=== PATIENT | female | born 2005 | race African-American/Black ===

== ENCOUNTER 2024-08-13 20:14 | Emergency (ER) | payer SELFPAY ==
--- NOTE | ~2024-08-13 | US_ITS ---
EXAMINATION: US OB <=14 wk fetus w TV DATE: 08/13/2024 21:55 CDT INDICATION: Amenorrhea now with bleeding and cramping and positive test COMPARISON: 02/25/2024 TECHNIQUE: Real-time transabdominal and transvaginal obstetric ultrasound. FINDINGS: 1 para 0 Left menstrual period is unknown. Quantitative beta hCG is not resulted. The uterus measures 8.3 x 4.8 x 4.9 cm. A gestational sac is identified within the uterus, to the right of midline. The mean gestational sac size is 19.7 mm, corresponding to an approximate gestational age of 6 weeks and 6 days. A pole is identified, with a crown-rump length that measures 1.7 cm, corresponding to an approx imate gestational age of 8 weeks and 0 days. cardiac activity is identified at a rate of 169 bpm. The right ovary measures 4.0 x 1.9 x 2.7 cm. Right-sided corpus luteal cyst. The left ovary measures 2.7 x 1.9 x 1.9 cm. Estimated date of delivery by ultrasound is 03/25/2025 IMPRESSION: Single intrauterine gestation with an approximate gestational age of 8 weeks and 0 days, with c ardiac activity identified. Reviewed, dictated and finalized at location A. IMPRESSION: Single intrauterine gestation with an approximate gestational age of 8 weeks an d 0 days, with cardiac activity identified.
[2024-08-13 20:18] VITALS: BP 133/68; PULSE 99; RESP 16; TEMP 36.6; O2SAT 100
--- NOTE | 2024-08-13 21:54 | ED_ITS ---
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 She reports her primary care provider took her off her control pills approximately 6 months ago. Patient reports her last menstrual period was approximately 3 months ago. She reports she did not know she was until she went to [facility] earlier today and they confirmed with a positive test. Patient endorses lower abdominal pain earlier today that now has subsided in her back. She denies any recent fevers, chest pain, shortness of breath, abdominal trauma. Related Data Allergies Allergy/AdvReac Type Severity Reaction Status Date / Time No Known Allergies Allergy Verified 08/13/24 20:17 Review of Systems 2 Review of Systems: All systems reviewed & are unremarkable except as noted in HPI and below Exam 2 Narrative: GENERAL: Well appearing, well-nourished, non-toxic, in no acute distress. HEAD: Normocephalic, atraumatic. NECK: Supple. No adenopathy, no masses. RESPIRATORY: Airway patent, respirations nonlabored. Clear to auscultation bilaterally, no rales, rhonchi, wheezing. CARDIOVASCULAR: Regular rate and rhythm without murmurs, rubs, or gallops. Peripheral pulses 2+ and equal bilaterally. ABDOMINAL: Soft, nontender, nondistended, no hepatosplenomegaly. Normoactive BS. MUSCULOSKELETAL: Moves all extremities. Strength/ROM intact without gross deformities. SKIN: Warm, dry, normal color. No rashes. NEURO: A&O X3. Speech clear. Cranial nerves II-XII intact. No ataxic movements. PSYCHIATRIC: Appropriate mood and affect. Normal interaction. Course Vital Signs Vital signs: Vital Signs Temperature 36.6 C 08/13/24 20:18 Pulse Rate 99 08/13/24 20:18 Respiratory Rate 16 08/13/24 20:18 Blood Pressure 133/68 08/13/24 20:18 Pulse Oximetry 100 08/13/24 20:18 Oxygen Delivery Room Air 08/13/24 20:18 Temperature 36.6 C 08/13/24 20:18 Pulse Rate 99 08/13/24 20:18 Respiratory Rate 16 08/13/24 20:18 Blood Pressure 133/68 08/13/24 20:18 Pulse Oximetry 100 08/13/24 20:18 Oxygen Delivery Room Air 08/13/24 20:18 MDM - OB/Uterine Contractions MDM Narrative Medical decision making narrative: Patient is a 19-year-old female who presents to the ER with complaints of back pain and vaginal bleeding. She reports her primary care provider took her off her control pills approximately 6 months ago. Patient reports her last menstrual period was approximately 3 months ago. She reports she did not know she was until she went to [facility] earlier today and they confirmed with a positive test. Patient endorses lower abdominal pain earlier today that now has subsided in her back. She denies any recent fevers, chest pain, shortness of breath, abdominal trauma. Labs Ordered: CBC, CMP, beta HCG, UA Imaging Ordered: Ultrasound Ob less than 14 weeks Medications Ordered: Tylenol p.o. Results: Patient's CMP indicates patient is mildly dehydrated. Her urinalysis indicates patient has UTI. Pt's US indicates The uterus measures 8.3 x 4.8 x 4.9 cm. A gestational sac is identified within the uterus, to the right of midline. The mean gestational sac size is 19.7 mm, corresponding to an approximate gestational age of 6 weeks and 6 days. A pole is identified, with a crown- rump length that measures 1.7 cm, corresponding to an approximate gestational age of 8 weeks and 0 days. cardiac activity is identified at a rate of 169 bpm. The right ovary measures 4.0 x 1.9 x 2.7 cm. Right-sided corpus luteal cyst. The left ovary measures 2.7 x 1.9 x 1.9 cm. Estimated date of delivery by ultrasound is 03/25/2025 Diagnosis: Abnormal vaginal bleeding, urinary tract infection, intrauterine , risk for spontaneous Consults: OBGYN (outpatient) Patient Education/Shared MDM: Results of imaging and lab work shared with patient. She endorses improvement following pain medication administration. Patient strongly advised to maintain hydration status upon discharge and follow- up with her PCP as soon as possible. She will be discharged home with a prescription for Macrobid and vitamins. Strict return precautions provided. Patient verbalized understanding is in agreement with plan. Vital signs stable at time of discharge. All questions answered. Differential Diagnosis Differential diagnosis: Likely other (Increase for spontaneous , intrauterine , urinary tract infection, abnormal vaginal bleeding) Lab Data Attestation: I reviewed the patient's lab results. 08/13/24 21:52 08/13/24 21:52 Labs: Lab Results 08/13/24 08/14/24 Range/Units 21:52 00:59 WBC 10.1 H (4.5-10.0) K/mm3 RBC 4.32 (4.2-5.4) M/mm3 Hgb 11.9 L (12.0-15.0) g/dL Hct 37.0 (37.0-47.0) % MCV 85.6 (80-100) fl MCH 27.5 (26-34) pg MCHC 32.2 (32-36) g/dl RDW 14.5 (11.5-14.5) % Plt Count 343 (150-375) k/mm3 MPV 9.5 (7.4-10.4) fl Immature Gran % (Auto) 0.3 (0-0.5) % Neut % (Auto) 65.4 (45.5-73.1) % Lymph % (Auto) 27.9 (18.3-44.2) % [place] % (Auto) 5.5 (2.6-8.5) % Eos % (Auto) 0.6 (0-4.4) % Baso % (Auto) 0.3 (0.2-1.2) % Lymph # (Auto) 2.81 (0.9-3.2) K/mm3 [place] # (Auto) 0.6 (0.1-0.6) K/mm3 Eos # (Auto) 0.1 (0-0.3) K/mm3 Baso # (Auto) 0.0 (0.0-0.1) K/mm3 Abs Immat Gran (auto) 0.03 (0.00-0.031) K/mm3 Absolute Neuts (auto) 6.6 (1.3-6.7) K/mm3 Absolute Nucleated RBC 0.000 (0.0-0.012) K/mm3 Nucleated RBC % 0.0 (0.0-0.2) % Sodium 137 (137-145) mmol/L Potassium 3.9 (3.4-5.0) mmol/L Chloride 103 (98-107) mmol/L Carbon Dioxide 21 L (22-30) mmol/L Anion Gap 13 H (4-12) mmol/L BUN 7 (7-17) mg/dL Creatinine 0.51 L (0.7-1.0) mg/dL Estim Creat Clear Calc 158 ml/min Estimated GFR > 60 (59 - ) Glucose 83 (65-110) mg/dL Calcium 9.5 (8.4-10.2) mg/dL Total Bilirubin 0.7 (0.2-1.3) mg/dL AST 20 (14-36) U/L ALT 15 (6-35) U/L Alkaline Phosphatase 91 (38-126) U/L Total Protein 8.0 (6.3-8.2) g/dL Albumin 4.3 (3.5-5.1) g/dL Beta HCG, Quant 66834.00 mIU/ML Urine Color Red H (Yellow) Urine Appearance Clear (Clear) Urine pH TNP Ur Specific [place] TNP Urine Protein TNP Urine Glucose (UA) TNP Urine Ketones TNP Ur Blood (Man) TNP Urine Nitrate TNP Urine Bilirubin TNP Urine Urobilinogen TNP Add Ur Microanalysis Reviewed Leukocyte Esterase Rfl TNP Urine RBC >100 H (0-2) /hpf Urine WBC 11-20 H (0-3) /hpf Ur Squamous Epith Cells Moderate (Few) /hpf Urine Bacteria Rare /hpf Urine Casts 0-2 Imaging Data Attestation: I personally reviewed and interpreted this imaging study as follows: Radiologist's impression: Impressions Obstetrics Ultrasound 08/13/24 21:55 IMPRESSION: Single intrauterine gestation with an approximate gestational age of 8 weeks and 0 days, with cardiac activity identified. Discharge Plan Discharge Clinical Impression: At increased risk for spontaneous , Urinary tract infection affecting , Vaginal bleeding, abnormal Patient Disposition: Home, Self-Care Condition: Stable Instructions: Antibiotic Form, Abnormal (Dysfunctional) Uterine Bleeding (ED), Urinary Tract Infection in (ED) Additional Instructions: Please return to the ER with any worsening symptoms. Follow-up with an OBGYN as soon as possible. Take all medications as prescribed, including regularly scheduled medications. Complete your full dose of antibiotics. Start taking vitamins. Patient Language: Danish Prescriptions: New 114-iron a-g-folate 1 20 mg iron- 1 mg tablet 1 tablet PO DAILY Qty: 90 0RF nitrofurantoin monohyd/m-cryst [Macrobid] 100 mg capsule 100 mg PO Q12H 5 Days Qty: 10 0RF Rx Instructions: must administer with a meal/food Follow-up/Referrals: Linda Andrews MD [Physician] - (OBGYN) PHYSICIAN NOT ON STAFF,NONSTAFF [Primary Care Provider] - Javier Pulliam MD [Physician] - (OBGYN) Stand Alone Forms: Work/School Release IP Time of Disposition: 02:03
[2024-08-13 21:59] LABS: Basophils Percent Auto 0.3 % (0.2-1.2); Eosinophils Absolute Auto 0.1 K/mm3 (0-0.3); Eosinophils Percent Auto 0.6 % (0-4.4); Hemoglobin 11.9 g/dL (12.0-15.0); Immature Granulocyte Absolute 0.03 K/mm3 (0.00-0.031); Immature Granulocyte Percent A 0.3 % (0-0.5); Lymphocytes Absolute Auto 2.81 K/mm3 (0.9-3.2); Lymphocytes Percent Auto 27.9 % (18.3-44.2); Mean Corpuscular HGB Conc 32.2 g/dl (32-36); Mean Corpuscular Hemoglobin 27.5 pg (26-34); Mean Corpuscular Volume 85.6 fl (80-100); Mean Platelet Volume 9.5 fl (7.4-10.4); Monocytes Absolute Auto 0.6 K/mm3 (0.1-0.6); Monocytes Percent Auto 5.5 % (2.6-8.5); Neutrophils Absolute Auto 6.6 K/mm3 (1.3-6.7); Neutrophils Percent Auto 65.4 % (45.5-73.1); Platelet Count Result 343 k/mm3 (150-375); Red Blood Count 4.32 M/mm3 (4.2-5.4); Red Cell Distribution Width 14.5 % (11.5-14.5); White Blood Count 10.1 K/mm3 (4.5-10.0)
[2024-08-13 22:10] LABS: Alanine Aminotransferase 15 U/L (6-35); Albumin Level 4.3 g/dL (3.5-5.1); Alkaline Phosphatase 91 U/L (38-126); Anion Gap 13 mmol/L (4-12); Aspartate Amino Transferase 20 U/L (14-36); Bilirubin,Total 0.7 mg/dL (0.2-1.3); Blood Urea Nitrogen 7 mg/dL (7-17); Calcium 9.5 mg/dL (8.4-10.2); Carbon Dioxide 21 mmol/L (22-30); Chloride 103 mmol/L (98-107); Estimated CRCL calculation 158 ml/min; Estimated Glomerular Filt Rate > 60; Glucose 83 mg/dL (65-110); Potassium 3.9 mmol/L (3.4-5.0); Sodium 137 mmol/L (137-145)
--- NOTE | 2024-08-13 22:20 | PC.NURSE ---
gave patient urine cup and moist towelette and advised her that we needed a urine sample. patient advised US had her pee for their exam and she is unsure when she will be able to urinate again.
[2024-08-13] MEDS: ACETAMINOPHEN 500 MG TABLET 1000 MG PO (22:35)
[2024-08-13] MEDS: SODIUM CHLORIDE 0.9% IV 1,000 ML 999 ML IV CONT (22:36)
--- NOTE | 2024-08-14 00:39 | PC.NURSE ---
pt ambulatory to restroom and verbalized unable to urinate at this time.
[2024-08-14 01:30] LABS: Bacteria Urine Rare /hpf; Need Manual Microscopic Reviewed; Non Pathogenic Casts 0-2; RBC Urine >100 /hpf (0-2); Squamous Epithelial Cell Urine Moderate /hpf (Few)
[2024-08-14 01:33] LABS: Appearance Urine Clear (Clear)
[2024-08-14 01:34] LABS: Add Urine Microscopic? YES; Color Urine Red (Yellow)
== END 2024-08-14 02:11 | disposition home or self-care (01) ==
PROVIDERS: Emergency Provider Registered Nurse
DX: O20.9 Hemorrhage in early pregnancy, unspecified (principal); O23.41 Unspecified infection of urinary tract in pregnancy, first trimester; N39.0 Urinary tract infection, site not specified; Z3A.08 8 weeks gestation of pregnancy
CPT/HCPCS: 36415; 76801; 76817; 80053; 81001; 84702; 85025; 99284; A9270; J7030

== ENCOUNTER 2024-08-17 21:57 | Emergency (ER) | payer SELFPAY ==
[2024-08-17 22:06] VITALS: BP 139/86; PULSE 107; RESP 16; TEMP 36.4; O2SAT 100
[2024-08-17 23:27] LABS: BEDSIDEPREGUCG Positive (Negative)
[2024-08-17 23:37] LABS: Bacteria Urine None Seen /hpf; Non Pathogenic Casts 0-2; RBC Urine >100 /hpf (0-2); Squamous Epithelial Cell Urine Occasional /hpf (Few)
[2024-08-17 23:56] LABS: Add Urine Microscopic? YES; Appearance Urine Turbid (Clear); Bilirubin Urine 1+ (Negative); Blood Urine 3+ (Negative); Color Urine Dark Amber (Yellow); Glucose Urine UA Negative (Negative); Ketones Urine 3+ mg/dL (Negative); Leukocyte Esterase Ur Trace LEU/UL (Negative); Nitrate Urine Negative (Negative); Protein Urine 1+ mg/dL (Negative); Specific Grav Ur 1.036 (1.001-1.035); pH Urine 5.5 (5.0-9.0)
[2024-08-18 01:04] LABS: Basophils Percent Auto 0.4 % (0.2-1.2); Eosinophils Percent Auto 0.3 % (0-4.4); Hematocrit 34.4 % (37.0-47.0); Immature Granulocyte Absolute 0.04 K/mm3 (0.00-0.031); Immature Granulocyte Percent A 0.4 % (0-0.5); Lymphocytes Absolute Auto 1.62 K/mm3 (0.9-3.2); Lymphocytes Percent Auto 14.6 % (18.3-44.2); Mean Corpuscular Hemoglobin 27.6 pg (26-34); Mean Corpuscular Volume 86.2 fl (80-100); Mean Platelet Volume 9.5 fl (7.4-10.4); Monocytes Absolute Auto 0.5 K/mm3 (0.1-0.6); Monocytes Percent Auto 4.4 % (2.6-8.5); Neutrophils Absolute Auto 8.9 K/mm3 (1.3-6.7); Neutrophils Percent Auto 79.9 % (45.5-73.1); Platelet Count Result 337 k/mm3 (150-375); Red Blood Count 3.99 M/mm3 (4.2-5.4); Red Cell Distribution Width 14.5 % (11.5-14.5); White Blood Count 11.1 K/mm3 (4.5-10.0)
[2024-08-18 01:14] LABS: Alanine Aminotransferase 21 U/L (6-35); Albumin Level 4.5 g/dL (3.5-5.1); Alkaline Phosphatase 91 U/L (38-126); Anion Gap 12 mmol/L (4-12); Aspartate Amino Transferase 35 U/L (14-36); Bilirubin,Total 0.7 mg/dL (0.2-1.3); Blood Urea Nitrogen 9 mg/dL (7-17); Calcium 9.6 mg/dL (8.4-10.2); Carbon Dioxide 22 mmol/L (22-30); Chloride 103 mmol/L (98-107); Estimated CRCL calculation 190 ml/min; Estimated Glomerular Filt Rate > 60; Glucose 89 mg/dL (65-110); Potassium 4.1 mmol/L (3.4-5.0); Sodium 137 mmol/L (137-145)
--- NOTE | 2024-08-18 01:19 | ED.FEMALEGU ---
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 She reports being approximately 8 weeks , unknown last menstrual period but she states she was told her estimated due date is March 25. She previously seen an Ob Gyne although she does not recall who; she has not yet established with anyone for this but has an appointment with Dr. Pulliam scheduled for 08/30/2024. Patient has been having vaginal bleeding for approximately 10 days before presenting to [facility] 08/13/2024. On that date she was diagnosed with and advised to come to [facility] for ultrasound to rule out ectopic . She did this and an intrauterine was identified though patient was noted to be at high risk for miscarriage. No prior abdominal surgeries. No trauma. She states that she occasionally experiencing abdominal pain when she has back pain. No IV drug use. No paresthesias or saddle anesthesia. No incontinence bowel or bladder. She has been changing pads approximately every 3 hours and she noted clots. No dysuria, urgency or frequency. After being seen on 08/13/2024 she notes that her vaginal bleeding let up for a day but then restarted. She has nearly finished Macrobid she was prescribed. Denies any flank pain, fevers, chills, nausea, vomiting. She has been taking vitamins as well as Tylenol 500 mg x 2 tablets b.i.d. History of chlamydia last year that she states was treated. She has been constipated with several bowel movements recently that have been hard and she has an urge to defecate but having issues. She reports feeling cold frequently. Related Data Allergies Allergy/AdvReac Type Severity Reaction Status Date / Time No Known Allergies Allergy Verified 08/17/24 21:59 [facility] Past Medical History Medical History Chlamydia Social History Social History Occupation/Education: occupation Exam Narrative: GENERAL: Well-appearing, well-nourished, and in no acute distress. HEAD: Normocephalic, atraumatic. EYES: Non injected, non icteric ENT: Nares clear, no rhinorrhea or epistaxis. NECK: Supple. CHEST: Speaking in full sentences. No respiratory distress. HEART: Tachycardic rate and rhythm. . ABDOMEN: Soft, nondistended. No tenderness to palpation throughout. No rigidity or guarding. Not peritoneal : No CVA tenderness. Pelvic exam performed with tech present as manager of business/family services assistant. Normal external female genitalia though with appreciable blood overlying vulva. No tears/fissues/lacerations. Normal vaginal mucosa. Small clots but also thick stringy bloody/darkish discharge from cervical os which does appear slightly open. No cervical motion tenderness. Back: Patient demonstrates flexion extension as well as rotational movement. She notes pain in low lumbar-sacral area and radiating bilaterally. No appreciable spasms. No midline TTP. No paravertebral tenderness. EXTREMITIES: Normal range of motion. No lower extremity edema. SKIN: Warm, dry, no rash. NEURO: No focal deficits. Alert and oriented x3. PSYCH: Normal mood and affect. Course Vital Signs Vital signs: Vital Signs Temperature 97.6 F 08/17/24 22:06 Pulse Rate 107 H 08/17/24 22:06 Respiratory Rate 16 08/17/24 22:06 Blood Pressure 139/86 08/17/24 22:06 Pulse Oximetry 100 08/17/24 22:06 Oxygen Delivery Room Air 08/17/24 22:06 Temperature 97.6 F 08/17/24 22:06 Pulse Rate 96 08/18/24 04:47 Respiratory Rate 14 08/18/24 04:47 Blood Pressure 127/82 08/18/24 04:47 Pulse Oximetry 100 08/18/24 04:47 Oxygen Delivery Room Air 08/17/24 22:06 MDM - Female Genitourinary MDM Narrative Medical decision making narrative: 000 female who reports estimated 8 weeks (last menstrual period unknown but reports approximately 3 months ago, states DINORAH 03/25/25) presents with concern for persistent vaginal bleed and low back pain as well with worsening/not resolving urinary tract infection. In the emergency department she is afebrile with vital signs notable for mild tachycardia. Back has no deformities,or signs of trauma. Curvature is within normal limits. No tenderness is noted on palpation of the spinous processes which are midline. Lumbar paraspinal muscles are not tender are are without spasm. Patient demonstrates flexion, extension, and [id number] rotation of the lumbar spine. They do not have any other red flags for fracture, malignancy, infection (e.g. spinal epidural abscess), or aortic/vascular: Age, no trauma, not on chronic steroids, no symptoms of cancer, no fever, IV drug use, HIV, immunosuppression, tearing pain, syncope. Given this, will defer further imaging at this time. She has been diagnosed with and has been having vaginal bleeding as well as reporting constipation and I suspect both of these are contributing to her back pain which is likely referred back pain. Urinalysis from 08/13/2024 with no bacteria seen but with possible other markers of infection. No reflex culture and none separately ordered/processed based on review of labs previously. Urinalysis today is also without bacteria but with other markers of infection; confirmed urine culture in process for today's visit. Will initiate ceftriaxone and prescribed an alternative antibiotic. Leukocytosis and normocytic anemia, both similar to/stable from previous. Beta hCG has gone from nearly 40,000 on 08/13/2024 to approximately 30,000 today, very concerning for miscarriage, especially given the appearance of material in the vaginal vault and of the cervical os. Patient prescribed Dulcolax to use her constipation. She is advised she can continue to take acetaminophen and we discussed appropriate/therapeutic dosing. I did discuss with patient that she is likely in the middle of actively miscarrying and the natural progression of this. Advised her to call her ObGyn in the morning and inform them so they could reschedule her appointment appropriately. Noted that if her body did not continue to spontaneously cramp and expel the products, she may need a D&C but it did not appear urgent/emergent at this time. I gave strict emergency department return precautions and she verified understanding. Provided work note. Differential Diagnosis Differential diagnosis: Likely urinary tract infection, trichomoniasis, cervicitis, cystitis and other (Miscarriage, constipation, vaginal bleeding during ; consider pyelonephritis) Medical Records Attestation: I reviewed the patient's medical records. Medical records narrative: Patient had ultrasound performed on 08/13/2024 for this which did demonstrate single intrauterine gestation with an approximate gestational age of 8 weeks and 0 days with cardiac activity identified. Records from [place] visit 08/13/24 are obtained and reviewed. Is reported that patient's os was open. Patient diagnosed with and sent to [place] that day to r/o ectopic . Blood type O positive. Bh there was 37,555. Urine w/o bacteria but moderate squamous cells. No urine culture. Lab Data Attestation: I reviewed the patient's lab results. 08/18/24 00:57 08/18/24 00:57 Labs: Lab Results 08/17/24 08/17/24 08/18/24 Range/Units 23:23 23: 00:57 WBC 11.1 H (4.5-10.0) K/mm3 RBC 3.99 L (4.2-5.4) M/mm3 Hgb 11.0 L (12.0-15.0) g/dL Hct 34.4 L (37.0-47.0) % MCV 86.2 (80-100) fl MCH 27.6 (26-34) pg MCHC 32.0 (32-36) g/dl RDW 14.5 (11.5-14.5) % Plt Count 337 (150-375) k/mm3 MPV 9.5 (7.4-10.4) fl Immature Gran % (Auto) 0.4 (0-0.5) % Neut % (Auto) 79.9 H (45.5-73.1) % Lymph % (Auto) 14.6 L (18.3-44.2) % [place] % (Auto) 4.4 (2.6-8.5) % Eos % (Auto) 0.3 (0-4.4) % Baso % (Auto) 0.4 (0.2-1.2) % Lymph # (Auto) 1.62 (0.9-3.2) K/mm3 [place] # (Auto) 0.5 (0.1-0.6) K/mm3 Eos # (Auto) 0.0 (0-0.3) K/mm3 Baso # (Auto) 0.0 (0.0-0.1) K/mm3 Abs Immat Gran (auto) 0.04 H (0.00-0.031) K/mm3 Absolute Neuts (auto) 8.9 H (1.3-6.7) K/mm3 Absolute Nucleated RBC 0.000 (0.0-0.012) K/mm3 Nucleated RBC % 0.0 (0.0-0.2) % Sodium 137 (137-145) mmol/L Potassium 4.1 (3.4-5.0) mmol/L Chloride 103 (98-107) mmol/L Carbon Dioxide 22 (22-30) mmol/L Anion Gap 12 (4-12) mmol/L BUN 9 (7-17) mg/dL Creatinine 0.42 L (0.7-1.0) mg/dL Estim Creat Clear Calc 190 ml/min Estimated GFR > 60 (59 - ) Glucose 89 (65-110) mg/dL Calcium 9.6 (8.4-10.2) mg/dL Total Bilirubin 0.7 (0.2-1.3) mg/dL AST 35 (14-36) U/L ALT 21 (6-35) U/L Alkaline Phosphatase 91 (38-126) U/L Total Protein 9.0 H (6.3-8.2) g/dL Albumin 4.5 (3.5-5.1) g/dL TSH 0.670 (0.465-4.680) uIU/mL Beta HCG, Quant 69956.00 mIU/ML Urine Color Dark daija (Yellow) Urine Appearance Turbid H (Clear) Urine pH 5.5 (5.0-9.0) Ur Specific [place]yer 1.036 H (1.001-1.035) Urine Protein 1+ H (Negative) mg/dL Urine Glucose (UA) Negative (Negative) mg/dL Urine Ketones 3+ H (Negative) mg/dL Ur Blood (Man) 3+ H (Negative) Urine Nitrate Negative (Negative) Urine Bilirubin 1+ H (Negative) Urine Urobilinogen 1.0 (<2.0) mg/dL Leukocyte Esterase Rfl Trace H (Negative) RENE/UL Urine RBC >100 H (0-2) /hpf Urine WBC 6-10 H (0-3) /hpf Ur Squamous Epith Cells Occasional (Few) /hpf Urine Bacteria None seen /hpf Urine Casts 0-2 POC Urine HCG, Qual Positive (Negative) C. trachomatis (PCR) Not detected (NOT DETECTE) N. gonorrhoeae (PCR) Not detected (NOT DETECTE) T. vaginalis (PCR) Not detected (NOT DETECTE) Blood Type O Positive Antibody Screen Negative Doses of RhIg Required 0 Discharge Plan Discharge Clinical Impression: Miscarriage, Leukocytosis, Normocytic anemia, Constipation Patient Disposition: Home, Self-Care Condition: Stable Instructions: Antibiotic Form, Miscarriage (ED), Constipation (ED), High Fiber Diet (ED), Leukocytosis (ED), Anemia (ED) Additional Instructions: As we discussed, based on the appearance of your cervical os and your downtrending beta hCG, the concern is that you are miscarrying/have miscarried. Call the OB Gyne to discuss when/if/how to reschedule your appointment. Acetaminophen/Tylenol (maximum 4000 mg per day) is safe to for pain relief. You can continue to take vitamins as they are meant to be taken even before . A urine culture is currently in process. Take the new prescription for antibiotics. Ducuolax is safe to take for constipation. Drink plenty of water and eat foods high in fiber. We are very sorry about your miscarriage. You did everything you could, and it was not your fault. It is okay to grieve, in fact it is to be expected. We know that nothing we can do or say can take away your pain, but please know that we are thinking of you and your family. There is a unique pain that comes from preparing a place in your heart for a child that never comes. Andrew Ziegler We will keep you, your baby, and your family in our prayers. Patient Language: Swedish Prescriptions: New bisacodyl 5 mg tablet,delayed release (DR/EC) 5 mg PO HS 2 Days Qty: 2 0RF acetaminophen 500 mg capsule 1,000 mg PO Q6H PRN (Reason: pain) Qty: 30 0RF cephalexin 500 mg capsule 500 mg PO Q6H 5 Days Qty: 19 0RF Rx Instructions: start 08/18/24 AM; received first dose in ED No Action 114-iron a-g-folate 1 20 mg iron- 1 mg tablet 1 tablet PO DAILY Qty: 90 0RF nitrofurantoin monohyd/m-cryst [Macrobid] 100 mg capsule 100 mg PO Q12H 5 Days Qty: 10 0RF Rx Instructions: must administer with a meal/food Follow-up/Referrals: PHYSICIAN NOT ON STAFF,NONSTAFF [Primary Care Provider] - Javier Pulliam MD [Physician] - Stand Alone Forms: Work/School Release IP Time of Disposition: 04:18
[2024-08-18 01:57] LABS: Trichomonas Vag PCR NOT DETECTED (NOT DETECTE)
[2024-08-18 02:19] LABS: Chlamydia trachomatis NOT DETECTED (NOT DETECTE); Neisseria gonorrhoeae PCR NOT DETECTED (NOT DETECTE)
[2024-08-18] MEDS: ACETAMINOPHEN 500 MG TABLET 1000 MG PO (04:39)
[2024-08-18 04:47] VITALS: BP 127/82; PULSE 96; RESP 14; O2SAT 100
[2024-08-18] MEDS: BISACODYL 5 MG TABLET EC PO (04:47)
== END 2024-08-18 04:49 | disposition home or self-care (01) ==
PROVIDERS: Emergency Provider Student in an Organized Health Care Education/Training Program
DX: O03.9 Complete or unspecified spontaneous abortion without complication (principal); D72.829 Elevated white blood cell count, unspecified; D64.9 Anemia, unspecified; K59.00 Constipation, unspecified
CPT/HCPCS: 36415; 80053; 81001; 81025; 84443; 84702; 85025; 85461; 86850; 86900; 86901; 87086; 87491; 87591; 87661; 96365; 99284; A9270; J0696

== ENCOUNTER 2024-08-19 23:51 | Emergency (ER) | payer SELFPAY ==
[2024-08-20 00:01] VITALS: BP 118/71; PULSE 82; RESP 15; TEMP 36.9; O2SAT 100
--- NOTE | 2024-08-20 00:06 | ED_ITS ---
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 Seen in this ED 08/13 and again a few days ago, the latter by myself. Patient had been told she was miscarrying at that time due to downtrending beta hcg and slightly open cervical os. She saw Reena Frederick in Dr Damon's office around 10:30 am on 08/19. States no pelvic exam was done but that US had been ordered but there were logistical issues and it is currently scheduled for 08/30/24. She states that bleeding persisted but then she passed more while at the ObGyn office and her back and abdominal pain improved briefly before restartin garound 11pm. She has a photo of some white/pale tissue protruding from vulva. Last dose of antibiotic that she had been taking for possible UTI was at 11:30. No Tylenol recently. Related Data Allergies Allergy/AdvReac Type Severity Reaction Status Date / Time No Known Allergies Allergy Verified 08/19/24 23:53 [facility] Past Medical History Medical History (Reviewed 08/19/24 @ 10:52 by Iris Charles [facility]) Anemia Chlamydia Social History Social History (Reviewed 08/19/24 @ 10:52 by Iris Charles [facility]) Smoking status: Never smoker Alcohol intake: never Substance use: never Occupation/Education: occupation Exam 2 Narrative: GENERAL: Well-appearing, well-nourished, and in no acute distress. HEAD: Normocephalic, atraumatic. EYES: Non injected, non icteric ENT: Nares clear, no rhinorrhea or epistaxis. NECK: Supple. CHEST: Speaking in full sentences. No respiratory distress. HEART: Regular rate and rhythm. . ABDOMEN: Obese but Soft, nondistended. : 1cm fluid filled but soft lesion/blister along proximal right medial thigh. Normal external genitalia with some evidence of blood. Speculum exam performed with tech present as pile driving setter (patient's mother also remains in room at head of bed). Os is open more than on previous exam a few days ago. Thickish bloody tissue removed with ring forceps. Some blood pooled around fornices. No cervical motion tenderness. EXTREMITIES: Normal range of motion. No lower extremity edema. SKIN: Warm, dry NEURO: No focal deficits. Alert and oriented x3. PSYCH: Normal mood and affect. Course Vital Signs Vital signs: Vital Signs Temperature 98.4 F 08/20/24 00:01 Pulse Rate 82 08/20/24 00:01 Respiratory Rate 15 08/20/24 00:01 Blood Pressure 118/71 08/20/24 00:01 Pulse Oximetry 100 08/20/24 00:01 Oxygen Delivery Room Air 08/20/24 00:01 Temperature 98.4 F 08/20/24 00:01 Pulse Rate 89 08/20/24 03:10 Respiratory Rate 15 08/20/24 03:10 Blood Pressure 115/80 08/20/24 03:10 Pulse Oximetry 100 08/20/24 03:10 Oxygen Delivery Room Air 08/20/24 00:01 MDM - OB/Uterine Contractions MDM Narrative Medical decision making narrative: Patient presents continuing to have miscarriage. Had had vaginal bleeding since approximately 08/03/24 by report and seen at [place] 08/13/24 followed by at [place] same day, again 2 days ago, and now today. No US performed when here a few days ago given she presented, as tonight, overnight when US services not available for routine scans. In the emergency department they are afebrile with vital signs within normal limits. Urine culture from 08/17 showed no growth to date. TSH was normal on that date; will defer repeating. WEnt to OBGyn's office today. US ordered and scheduled for 08/30/24. Very mild leukocytosis. She has a normocytic anemia which represents a slight drop from previous though <1g. Normal renal function. Urinalysis without bacteria; there are some abnormalities the patient is already on an antibiotic; new sample reflexes to culture. NO changes indicated at this time. Beta hCG has down trended from 39,000, to 30,000, to 3000 today. Os more open on exam. We discussed that it does appear patient is completing her miscarriaeg and will likely need to show resolution of bHCG to 0 and US to show prescence or abscence or retained POC. Offered to keep patient in the ED until 7 or 8am to obtain this US this morning when techs available but that unlikely that patient would require an emergent D&C even if evidence of retained POC given she has otherwise been hemodynamically stable with only mild anemia, not hemorrhaging. Patient elects to be discharged. Encouraged her to call ObGyn to discuss repeat BHCG lab and if the timing of the US should be changed or kept as is. Given Rx for iron supplementation and advised on taking it effectively. Medical Records Attestation: I reviewed the patient's medical records. Medical records narrative: ObGyn f/u appointment 08/19/24 reviewed: ER Hospital Follow Up Details: Elisabeth is here for ER follow up. Was seen in ER on 08/13 and 08/18 for abdominal pain ,back pain and bleeding in early . US on 08/13 showed 8 week fetus with positive cardiac activity. No ultrasound done on 08/18. Speculum exam at that time showed slightly opened cervical os and blood in vaginal vault. Pt was given dx of miscarriage at that time. She is being treated for possible UTI and given tylenol for pain. She states bleeding has slowed today but is experiencing more back pain. Emotionally she is feeling ok. Last pap was in 12/2023- was told f/u in 1 year. We discussed need for f/u ultrasound stat today- Called Radiology to schedule, but problems with patient insurance bein active vs terminated. Per pt- mother just reinstated ta for her. While working with radiology and pts mother on insurance, the patient went to the clinic bathroom and believe she passed products of conception in the toilet. I was unable to see anything in the toilet with blood and paper present. She states that her back pain is pretty much gone at this time. Lab Data Attestation: I reviewed the patient's lab results. 08/20/24 01:00 08/20/24 01:00 Labs: Lab Results 08/20/24 08/20/24 Range/Units 01:00 01:08 WBC 10.2 H (4.5-10.0) K/mm3 RBC 3.65 L (4.2-5.4) M/mm3 Hgb 10.1 L (12.0-15.0) g/dL Hct 31.8 L (37.0-47.0) % MCV 87.1 (80-100) fl MCH 27.7 (26-34) pg MCHC 31.8 L (32-36) g/dl RDW 14.6 H (11.5-14.5) % Plt Count 337 (150-375) k/mm3 MPV 9.4 (7.4-10.4) fl Immature Gran % (Auto) 0.3 (0-0.5) % Neut % (Auto) 58.7 (45.5-73.1) % Lymph % (Auto) 30.3 (18.3-44.2) % [place] % (Auto) 7.7 (2.6-8.5) % Eos % (Auto) 2.5 (0-4.4) % Baso % (Auto) 0.5 (0.2-1.2) % Lymph # (Auto) 3.10 (0.9-3.2) K/mm3 [place] # (Auto) 0.8 H (0.1-0.6) K/mm3 Eos # (Auto) 0.3 (0-0.3) K/mm3 Baso # (Auto) 0.1 (0.0-0.1) K/mm3 Abs Immat Gran (auto) 0.03 (0.00-0.031) K/mm3 Absolute Neuts (auto) 6.0 (1.3-6.7) K/mm3 Absolute Nucleated RBC 0.000 (0.0-0.012) K/mm3 Nucleated RBC % 0.0 (0.0-0.2) % PT 14.6 (11.1-14.7) Seconds INR 1.1 APTT 29.3 (22.3-36.8) Seconds Sodium 139 (137-145) mmol/L Potassium 4.0 (3.4-5.0) mmol/L Chloride 104 (98-107) mmol/L Carbon Dioxide 24 (22-30) mmol/L Anion Gap 11 (4-12) mmol/L BUN 13 (7-17) mg/dL Creatinine 0.46 L (0.7-1.0) mg/dL Estim Creat Clear Calc 177 ml/min Estimated GFR > 60 (59 - ) Glucose 86 (65-110) mg/dL Calcium 9.2 (8.4-10.2) mg/dL Beta HCG, Quant 3168.20 mIU/ML Urine Color Dark daija (Yellow) Urine Appearance Cloudy H (Clear) Urine pH 5.0 (5.0-9.0) Ur Specific [place] 1.029 (1.001-1.035) Urine Protein 2+ H (Negative) mg/dL Urine Glucose (UA) Negative (Negative) mg/dL Urine Ketones Negative (Negative) mg/dL Ur Blood (Man) 3+ H (Negative) Urine Nitrate Negative (Negative) Urine Bilirubin Negative (Negative) Urine Urobilinogen 1.0 (<2.0) mg/dL Leukocyte Esterase Rfl 1+ H (Negative) RENE/UL Urine RBC >100 H (0-2) /hpf Urine WBC 6-10 H (0-3) /hpf Ur Squamous Epith Cells Occasional (Few) /hpf Urine Bacteria None seen /hpf Urine Casts 0-2 Discharge Plan Discharge Clinical Impression: Normocytic anemia, Incomplete miscarriage Patient Disposition: Home, Self-Care Condition: Stable Instructions: Antibiotic Form, Miscarriage (ED), Anemia (ED), Dilation and Curettage (DC) Additional Instructions: As we discussed, your beta hcg went from approximately 39,000 to 30,000 to approximately 3,000 today and your cervical os was open. Call your OB Gyne to discuss the need for a repeat beta hcg lab to confirm completion of miscarriage as well as if there is a way or an indication to make the ultrasound sooner than 08/30. They will use this information to decide if a D&C is needed. You are being prescribed iron supplementation for your anemia. It is just as efficacious to take this every other day with fewer GI side effects. It is best absorbed when taken with vitamin C so take this with orange juice, etc. You did not have any bacteria in your urine but you can continue to take the antibiotic you were prescribed until today's culture results. Return to the emergency department any new or worsening symptoms such as saturating 2 pads an hour for more than 2-3 hours, fainting nearly passing out, having a fever greater than 100.4? F, etc. Patient Language: Thai Prescriptions: New ferrous sulfate 325 mg (65 mg iron) tablet 325 mg PO EVERY OTHER DAY 30 Days Qty: 15 0RF No Action 114-iron a-g-folate 1 20 mg iron- 1 mg tablet 1 tablet PO DAILY Qty: 90 0RF nitrofurantoin monohyd/m-cryst [Macrobid] 100 mg capsule 100 mg PO Q12H 5 Days Qty: 10 0RF Rx Instructions: must administer with a meal/food bisacodyl 5 mg tablet,delayed release (DR/EC) 5 mg PO HS 2 Days Qty: 2 0RF acetaminophen 500 mg capsule 1,000 mg PO Q6H PRN (Reason: pain) Qty: 30 0RF cephalexin 500 mg capsule 500 mg PO Q6H 5 Days Qty: 19 0RF Rx Instructions: start 08/18/24 AM; received first dose in ED Follow-up/Referrals: Reena Frederick [Other] (in Dr Pulliam's office) PHYSICIAN NOT ON STAFF,NONSTAFF [Primary Care Provider] - Javier Pulliam MD [Physician] - Stand Alone Forms: Work/School Release IP Time of Disposition: 03:13
[2024-08-20 01:10] LABS: Basophils Absolute Auto 0.1 K/mm3 (0.0-0.1); Basophils Percent Auto 0.5 % (0.2-1.2); Eosinophils Absolute Auto 0.3 K/mm3 (0-0.3); Eosinophils Percent Auto 2.5 % (0-4.4); Hematocrit 31.8 % (37.0-47.0); Hemoglobin 10.1 g/dL (12.0-15.0); Immature Granulocyte Absolute 0.03 K/mm3 (0.00-0.031); Immature Granulocyte Percent A 0.3 % (0-0.5); Lymphocytes Percent Auto 30.3 % (18.3-44.2); Mean Corpuscular HGB Conc 31.8 g/dl (32-36); Mean Corpuscular Hemoglobin 27.7 pg (26-34); Mean Corpuscular Volume 87.1 fl (80-100); Mean Platelet Volume 9.4 fl (7.4-10.4); Monocytes Absolute Auto 0.8 K/mm3 (0.1-0.6); Monocytes Percent Auto 7.7 % (2.6-8.5); Neutrophils Percent Auto 58.7 % (45.5-73.1); Platelet Count Result 337 k/mm3 (150-375); Red Blood Count 3.65 M/mm3 (4.2-5.4); Red Cell Distribution Width 14.6 % (11.5-14.5); White Blood Count 10.2 K/mm3 (4.5-10.0)
[2024-08-20 01:23] LABS: Bacteria Urine None Seen /hpf; Non Pathogenic Casts 0-2; RBC Urine >100 /hpf (0-2); Squamous Epithelial Cell Urine Occasional /hpf (Few)
[2024-08-20 01:25] LABS: Anion Gap 11 mmol/L (4-12); Blood Urea Nitrogen 13 mg/dL (7-17); Calcium 9.2 mg/dL (8.4-10.2); Carbon Dioxide 24 mmol/L (22-30); Chloride 104 mmol/L (98-107); Estimated CRCL calculation 177 ml/min; Estimated Glomerular Filt Rate > 60; Glucose 86 mg/dL (65-110); Sodium 139 mmol/L (137-145)
[2024-08-20 01:27] LABS: INR 1.1; Prothrombin Time 14.6 Seconds (11.1-14.7)
[2024-08-20 01:33] LABS: Add Urine Microscopic? YES; Appearance Urine Cloudy (Clear); Bilirubin Urine Negative (Negative); Blood Urine 3+ (Negative); Glucose Urine UA Negative (Negative); Ketones Urine Negative (Negative); Leukocyte Esterase Ur 1+ LEU/UL (Negative); Nitrate Urine Negative (Negative); Protein Urine 2+ mg/dL (Negative); Specific Grav Ur 1.029 (1.001-1.035)
[2024-08-20 01:34] LABS: Color Urine Dark Amber (Yellow)
[2024-08-20] MEDS: HYDROcodone/acetaminophen (*CRX) 5-325 MG TABLET 1 TAB PO (01:37)
[2024-08-20 01:42] VITALS: BP 120/82; PULSE 92; RESP 18; O2SAT 100
[2024-08-20 01:50] LABS: Partial Thromboplastin Time 29.3 Seconds (22.3-36.8)
[2024-08-20 03:10] VITALS: BP 115/80; PULSE 89; RESP 15; O2SAT 100
== END 2024-08-20 03:34 | disposition home or self-care (01) ==
PROVIDERS: Emergency Provider Student in an Organized Health Care Education/Training Program
DX: O03.4 Incomplete spontaneous abortion without complication (principal); D64.9 Anemia, unspecified
CPT/HCPCS: 36415; 80048; 81001; 84702; 85025; 85610; 85730; 87086; 99284; A9270

== ENCOUNTER 2024-08-30 13:34 | Outpatient (CLI) | payer MEDICAID, SELFPAY ==
--- NOTE | ~2024-08-30 | US_ITS ---
EXAMINATION: US OB <=14 wk fetus w TV INDICATION: with inconclusive viability Comparison:Ultrasound dated 08/13/2024 TECHNIQUE: Multiple transabdominal and endovaginal sonographic images of the pelvis performed. FINDINGS: The uterus measures 6.9 x 4 x 4 cm. The endometrial complex measures 11 mm. Endometrium is heterogeneous. No gestational sac or pole identified. The right ovary measures 3.5 x 2.6 x 1.6 cm and the left ovary measures 3.2 x 1.7 x 1.9 cm. There ar e small follicles in each ovary. Normal doppler signal in both ovaries. There is no free fluid in the pelvis. There are no abnormal masses seen on either side. IMPRESSION: 1. No evidence for intrauterine or pole, consistent with failed . Endometriu m measures 11 mm. Reviewed, dictated and finalized at location A. IMPRESSION: 1. No evidence for intrauterine or pole, consistent with failed . Endometrium measures 11 mm.
== END 2024-08-30 13:35 | disposition home or self-care (01) ==
PROVIDERS: Visit Provider Nurse Practitioner Obstetrics & Gynecology
DX: O36.80X0 Pregnancy with inconclusive fetal viability, not applicable or unspecified (principal); Z3A.00 Weeks of gestation of pregnancy not specified; O20.0 Threatened abortion
CPT/HCPCS: 76801; 76817

== ENCOUNTER 2025-04-18 12:22 | Emergency (ER) | payer BC, SELFPAY ==
--- NOTE | ~2025-04-18 | US_ITS ---
EXAMINATION: Ultrasound uterus, OB, Limited: DATE: 04/18/2025. INDICATION: 20-year-old, 2. Last menstrual period on 03/11/2025. Pelvic pain and bleeding. Positive test. TECHNIQUE: Ultrasound of the uterus with Doppler. Transabdominal and transvaginal examination. COMPARISON: No prior studies of this . FINDINGS: Slightly irregular intrauterine gestational sac is noted, with average diameter of 5 mm. Yolk sac is visible. No definite pole is seen. No heart activity is seen. Gestational age by diameter of the sac 5 weeks and 2 days. Questionable subchorionic bleed around the sac in the endometrium. Normal ovaries with 1.7 cm size corpus luteum cyst of right ovary. Perfusion noted. No free fluid. IMPRESSION: 1. Intrauterine gestational sac, 5+ weeks in size. Yolk sac is visible. No activity is seen at this time. Viability of is undetermined at this time. 2. Questionable minimal subchorionic bleed around the sac in the endometrium. 3. Normal adnexa. No free fluid. 4. Continued ultrasound follow-up is recommended to establish viability and gestational age.. Reviewed, dictated and finalized at location T. LE AND SLEEVE WORKER IMPRESSION: 1. Intrauterine gestational sac, 5+ weeks in size. Yolk sac is visible. No feta l activity is seen at this time. Viability of is undetermined at this time. 2. Questionable minimal subchorionic bleed around the sac in the endometrium. 3. Normal adnexa. No free fluid. 4. Continued ultrasound follow-up is recommended to establish viability and ges tational age..
[2025-04-18 12:35] VITALS: BP 126/66; PULSE 93; RESP 16; TEMP 36.4; O2SAT 98
--- NOTE | 2025-04-18 13:13 | ED_ITS ---
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 Reports some light spotting. She had a positive test at home. Her LMP was March 11. GENERAL: Well-appearing, well-nourished, and in no acute distress. HEAD: Normocephalic, atraumatic. CHEST: No respiratory distress. HEART: Regular rate NEURO: ?Alert and oriented x3. Patient screened in triage and initial orders placed.? ?Additional care and disposition to be based upon?diagnostic testing and treatment. <Andria Leiva PA-C - Last Filed: 04/19/25 09:10> History of Present Illness HPI Narrative: Agree with HPI. Lower pelvic cramping, heart was constipation. Normal bowel movement yesterday. Has had a little bit of spotting in a recent positive test. No fevers or chills or sweats. 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 < Ramon Hess MD - Last Filed: 04/18/25 19:33> Related Data Allergies/Adverse reactions: Allergies Allergy/AdvReac Type Severity Reaction Status Date / Time No Known Allergies Allergy Verified 04/18/25 15:30 <Andria Leiva PA-C - Last Filed: 04/19/25 09:10> Review of Systems 2 Review of Systems: All systems reviewed & are unremarkable except as noted in HPI and below <Ramon Hess MD - Last Filed: 04/18/25 19:33> Constitutional: Constitutional: Reports no additional constitutional complaints <Ramon Hess MD - Last Filed: 04/18/25 19:33> Cardiovascular: Cardiovascular: Reports no additional cardiovascular complaints <Ramon Hess MD - Last Filed: 04/18/25 19:33> Respiratory: Respiratory: Reports no additional respiratory complaints < Ramon Hess MD - Last Filed: 04/18/25 19:33> Gastrointestinal: Gastrointestinal: Reports no additional gastrointestinal complaints <Ramon Hess MD - Last Filed: 04/18/25 19:33> Genitourinary: Genitourinary: Reports no additional female genitourinary complaints <Ramon Hess MD - Last Filed: 04/18/25 19:33> PMFSH Past Medical History Medical History: Medical History (Reviewed 03/02/25 @ 10:53 by Allie Gallardo [facility] [address]) Anemia Chlamydia <Andria Leiva PA-C - Last Filed: 04/19/25 09:10> Social History Social History: Social History (Reviewed 03/02/25 @ 10:53 by Allie Gallardo [facility] [address]) Smoking status: Never smoker Alcohol intake: never Substance use: never Occupation/Education: occupation <Andria Leiva PA-C - Last Filed: 04/19/25 09:10> Exam 2 Narrative: GENERAL: Well-appearing, well-nourished, and in no acute distress. HEAD: Normocephalic, atraumatic. ENT: Mucous membranes moist. CHEST: Clear to auscultation. No respiratory distress. HEART: Regular rate and rhythm. Normal peripheral pulses. ABDOMEN: Soft, nontender, nondistended. EXTREMITIES: Normal range of motion. No edema. SKIN: Warm, dry, no rash. NEURO: Alert and oriented x3. PSYCH: Normal mood and affect. <Ramon Hess MD - Last Filed: 04/18/25 19:33> Course Course Emergency Course: Discussed with Dr. Esquivel. Appropriate for outpatient follow-up. Possible small subchorionic hemorrhage. IUP identified. Patient educated on diagnosis and treatment plan and need for follow-up. Verbalized understanding. <Ramon Hess MD - Last Filed: 04/18/25 19:33> Vital Signs Vital signs: Vital Signs Temperature 97.6 F 04/18/25 12:35 Pulse Rate 93 04/18/25 12:35 Respiratory Rate 16 04/18/25 12:35 Blood Pressure 126/66 04/18/25 12:35 Pulse Oximetry 98 04/18/25 12:35 Oxygen Delivery Room Air 04/18/25 12:35 Temperature 97.6 F 04/18/25 12:35 Pulse Rate 92 04/18/25 19:39 Respiratory Rate 15 04/18/25 19:39 Blood Pressure 110/64 04/18/25 19:39 Pulse Oximetry 100 04/18/25 19:39 Oxygen Delivery Room Air 04/18/25 15:27 <Andria Leiva PA-C - Last Filed: 04/19/25 09:10> Vital Signs Temperature 97.6 F 04/18/25 12:35 Pulse Rate 93 04/18/25 12:35 Respiratory Rate 16 04/18/25 12:35 Blood Pressure 126/66 04/18/25 12:35 Pulse Oximetry 98 04/18/25 12:35 Oxygen Delivery Room Air 04/18/25 12:35 Temperature 97.6 F 04/18/25 12:35 Pulse Rate 92 04/18/25 19:39 Respiratory Rate 15 04/18/25 19:39 Blood Pressure 110/64 04/18/25 19:39 Pulse Oximetry 100 04/18/25 19:39 Oxygen Delivery Room Air 04/18/25 15:27 <Ramon Hess MD - Last Filed: 04/18/25 19:33> MDM - Female Genitourinary Differential Diagnosis Differential diagnosis: Likely urinary tract infection, ruptured ovarian cyst and other (Ectopic , IUP, threatened miscarriage) <Ramon Hess MD - Last Filed: 04/18/25 19:33> Lab Data Result diagrams: 04/18/25 13:55 04/18/25 13:55 <Andria Leiva PA-C - Last Filed: 04/19/25 09:10> Labs: Lab Results 04/18/25 04/18/25 Range/Units 13:55 15:34 WBC 7.5 (4.5-10.0) K/mm3 RBC 4.31 (4.2-5.4) M/mm3 Hgb 11.7 L (12.0-15.0) g/dL Hct 36.9 L (37.0-47.0) % MCV 85.6 (80-100) fl MCH 27.1 (26-34) pg MCHC 31.7 L (32-36) g/dl RDW 15.9 H (11.5-14.5) % Plt Count 318 (150-375) k/mm3 MPV 9.6 (7.4-10.4) fl Immature Gran % (Auto) 0.3 (0-0.5) % Neut % (Auto) 62.2 (45.5-73.1) % Lymph % (Auto) 27.5 (18.3-44.2) % [place] % (Auto) 7.8 (2.6-8.5) % Eos % (Auto) 1.7 (0-4.4) % Baso % (Auto) 0.5 (0.2-1.2) % Lymph # (Auto) 2.05 (0.9-3.2) K/mm3 [place] # (Auto) 0.6 (0.1-0.6) K/mm3 Eos # (Auto) 0.1 (0-0.3) K/mm3 Baso # (Auto) 0.0 (0.0-0.1) K/mm3 Abs Immat Gran (auto) 0.02 (0.00-0.031) K/mm3 Absolute Neuts (auto) 4.6 (1.3-6.7) K/mm3 Absolute Nucleated RBC 0.000 (0.0-0.012) K/mm3 Nucleated RBC % 0.0 (0.0-0.2) % PT 14.3 (11.1-14.7) Seconds INR 1.1 APTT 30.3 (22.3-36.8) Seconds Sodium 135 L (137-145) mmol/L Potassium 4.0 (3.4-5.0) mmol/L Chloride 106 (98-107) mmol/L Carbon Dioxide 21 L (22-30) mmol/L Anion Gap 8 (4-12) mmol/L BUN 10 (7-17) mg/dL Creatinine 0.51 L (0.7-1.0) mg/dL Estim Creat Clear Calc 158 ml/min Estimated GFR > 60 (59 - ) Glucose 78 (65-110) mg/dL Calcium 9.1 (8.4-10.2) mg/dL Total Bilirubin 0.8 (0.2-1.3) mg/dL AST 26 (14-36) U/L ALT 14 (6-35) U/L Alkaline Phosphatase 87 (38-126) U/L Total Protein 8.6 H (6.3-8.2) g/dL Albumin 4.3 (3.5-5.1) g/dL Beta HCG, Quant 1268.70 mIU/ML POC Urine HCG, Qual Positive (Negative) Blood Type O Positive Antibody Screen Negative Screen TNP Baby's Blood Type TNP Baby's REAL TNP Doses of RhIg Required 0 <Andria Leiva PA-C - Last Filed: 04/19/25 09:10> Lab Results 04/18/25 04/18/25 Range/Units 13:55 15:34 WBC 7.5 (4.5-10.0) K/mm3 RBC 4.31 (4.2-5.4) M/mm3 Hgb 11.7 L (12.0-15.0) g/dL Hct 36.9 L (37.0-47.0) % MCV 85.6 (80-100) fl MCH 27.1 (26-34) pg MCHC 31.7 L (32-36) g/dl RDW 15.9 H (11.5-14.5) % Plt Count 318 (150-375) k/mm3 MPV 9.6 (7.4-10.4) fl Immature Gran % (Auto) 0.3 (0-0.5) % Neut % (Auto) 62.2 (45.5-73.1) % Lymph % (Auto) 27.5 (18.3-44.2) % [place] % (Auto) 7.8 (2.6-8.5) % Eos % (Auto) 1.7 (0-4.4) % Baso % (Auto) 0.5 (0.2-1.2) % Lymph # (Auto) 2.05 (0.9-3.2) K/mm3 [place] # (Auto) 0.6 (0.1-0.6) K/mm3 Eos # (Auto) 0.1 (0-0.3) K/mm3 Baso # (Auto) 0.0 (0.0-0.1) K/mm3 Abs Immat Gran (auto) 0.02 (0.00-0.031) K/mm3 Absolute Neuts (auto) 4.6 (1.3-6.7) K/mm3 Absolute Nucleated RBC 0.000 (0.0-0.012) K/mm3 Nucleated RBC % 0.0 (0.0-0.2) % PT 14.3 (11.1-14.7) Seconds INR 1.1 APTT 30.3 (22.3-36.8) Seconds Sodium 135 L (137-145) mmol/L Potassium 4.0 (3.4-5.0) mmol/L Chloride 106 (98-107) mmol/L Carbon Dioxide 21 L (22-30) mmol/L Anion Gap 8 (4-12) mmol/L BUN 10 (7-17) mg/dL Creatinine 0.51 L (0.7-1.0) mg/dL Estim Creat Clear Calc 158 ml/min Estimated GFR > 60 (59 - ) Glucose 78 (65-110) mg/dL Calcium 9.1 (8.4-10.2) mg/dL Total Bilirubin 0.8 (0.2-1.3) mg/dL AST 26 (14-36) U/L ALT 14 (6-35) U/L Alkaline Phosphatase 87 (38-126) U/L Total Protein 8.6 H (6.3-8.2) g/dL Albumin 4.3 (3.5-5.1) g/dL Beta HCG, Quant 1268.70 mIU/ML POC Urine HCG, Qual Positive (Negative) Blood Type O Positive Antibody Screen Negative Screen TNP Baby's Blood Type TNP Baby's REAL TNP Doses of RhIg Required 0 <Ramon Hess MD - Last Filed: 04/18/25 19:33> Imaging Data Radiologist's impression: ITS Impressions Obstetrics Ultrasound 04/18/25 17:20 IMPRESSION: 1. Intrauterine gestational sac, 5+ weeks in size. Yolk sac is visible. No activity is seen at this time. Viability of is undetermined at this time. 2. Questionable minimal subchorionic bleed around the sac in the endometrium. 3. Normal adnexa. No free fluid. 4. Continued ultrasound follow-up is recommended to establish viability and gestational age.. <Ramon Hess MD - Last Filed: 04/18/25 19:33> Critical Care Time Critical Care Time Critical Care Time: No <ZACKERY Avina Last Filed: 04/19/25 09:10> Discharge Plan Discharge Clinical Impression: Subchorionic hematoma in first trimester <ZACKERY Avina Last Filed: 04/19/25 09:10> Patient Disposition: Home <ZACKERY Avina Last Filed: 04/19/25 09:10> Condition: Stable <ZACKERY Avina Last Filed: 04/19/25 09:10> Instructions: Subchorionic Hemorrhage (ED) <ZACKERY Avina Last Filed: 04/19/25 09:10> Additional Instructions: Return ER if your bleeding through 1 pad an hour for 3 continuous hours, you have fever over 100.4? F, or you have additional concerns. Contact her OB office tomorrow morning to schedule close follow-up and repeat ultrasound. <ZACKERY Avina Last Filed: 04/19/25 09:10> Patient Language: Bahamian <ZACKERY Avina Last Filed: 04/19/25 09:10> Prescriptions: No Action norelgestromin-ethin.estradiol [Xulane] 150-35 mcg/24 hr patch weekly 1 patch transdermal WEEKLY Qty: 3 3RF Rx Instructions: apply once weekly for 3 weeks of a 4-week cycle <ZACKERY Avina Last Filed: 04/19/25 09:10> Follow-up/Referrals: Reena De Dios APRN [Advanced Practice Nurse, [employer]] - 3 Days UNKNOWN,DOCTOR [Primary Care Provider] <ZACKERY Avina Last Filed: 04/19/25 09:10>
[2025-04-18 14:10] LABS: Hematocrit 36.9 % (37.0-47.0); Hemoglobin 11.7 g/dL (12.0-15.0); Immature Granulocyte Percent A 0.3 % (0-0.5); Lymphocytes Absolute Auto 2.05 K/mm3 (0.9-3.2); Mean Corpuscular HGB Conc 31.7 g/dl (32-36); Mean Corpuscular Hemoglobin 27.1 pg (26-34); Mean Corpuscular Volume 85.6 fl (80-100); Nucleated Red Blood Cells Absolute Auto 0.000 K/mm3 (0.0-0.012); Nucleated Red Blood Cells Perc 0.0 % (0.0-0.2); Platelet Count Result 318 k/mm3 (150-375); Red Blood Count 4.31 M/mm3 (4.2-5.4); White Blood Count 7.5 K/mm3 (4.5-10.0)
[2025-04-18 14:14] LABS: INR 1.1; Prothrombin Time 14.3 Seconds (11.1-14.7)
[2025-04-18 14:16] LABS: Partial Thromboplastin Time 30.3 Seconds (22.3-36.8)
[2025-04-18 14:19] LABS: Alanine Aminotransferase 14 U/L (6-35); Albumin Level 4.3 g/dL (3.5-5.1); Alkaline Phosphatase 87 U/L (38-126); Anion Gap 8 mmol/L (4-12); Aspartate Amino Transferase 26 U/L (14-36); Bilirubin,Total 0.8 mg/dL (0.2-1.3); Blood Urea Nitrogen 10 mg/dL (7-17); Calcium 9.1 mg/dL (8.4-10.2); Carbon Dioxide 21 mmol/L (22-30); Chloride 106 mmol/L (98-107); Estimated CRCL calculation 158 ml/min; Estimated Glomerular Filt Rate > 60; Glucose 78 mg/dL (65-110); Potassium 4.0 mmol/L (3.4-5.0); Sodium 135 mmol/L (137-145); Total Protein 8.6 g/dL (6.3-8.2)
[2025-04-18 15:27] VITALS: BP 117/84; PULSE 71; RESP 14; O2SAT 100
[2025-04-18 15:38] LABS: BEDSIDEPREGUCG Positive (Negative)
[2025-04-18 16:50] VITALS: BP 120/74; PULSE 68; RESP 17; O2SAT 100
[2025-04-18 18:52] VITALS: BP 114/61; PULSE 84; RESP 16; O2SAT 100
[2025-04-18 19:39] VITALS: BP 110/64; PULSE 92; RESP 15; O2SAT 100
== END 2025-04-18 19:40 | disposition home or self-care (01) ==
PROVIDERS: Physician Assistant; Emergency Provider Emergency Medicine
DX: O46.8X1 Other antepartum hemorrhage, first trimester (principal); O99.011 Anemia complicating pregnancy, first trimester; D64.9 Anemia, unspecified; Z3A.01 Less than 8 weeks gestation of pregnancy
CPT/HCPCS: 36415; 76801; 76817; 80053; 81025; 84702; 85025; 85461; 85610; 85730; 86850; 86900; 86901; 99284

== ENCOUNTER 2025-05-08 09:46 | Emergency (ER) | payer BC, SELFPAY ==
--- NOTE | ~2025-05-08 | XR_ITS ---
Examination: XR chest 2V Clinical History: L chest pain; 8wk preg, shield belly pls Comparison: None Technique: PA and Lateral Findings: Cardiomediastinal silhouette normal size and configuration. Lungs clear. No acute bony abnormality. IMPRESSION: 1. No acute cardiopulmonary findings. Reviewed, dictated and finalized at location R. [facility] [employer] MANAGER
[2025-05-08 09:50] VITALS: BP 132/78; PULSE 96; RESP 20; TEMP 36.5; O2SAT 100
--- NOTE | 2025-05-08 10:12 | ECG_ITS ---
Test Date: 2025-05-08 10:19:01 Measurements Intervals [place] Rate: 84 P: 32 WV: 139 QRS: 26 QRSD: 84 T: -14 QT: 344 QTc: 407 Interpretive Statements SINUS RHYTHM NONSPECIFIC T-WAVE ABNORMALITY- ANTEROLAT/INF LEADS BASELINE ARTIFACT- I, III, AVR, AVL, V1 BORDERLINE ECG No previous ECG available for comparison Electronically Signed On 05-08-2025 15:39:05 AUTOMATIC DOOR MECHANIC by Jorge Rand D.O.
--- NOTE | 2025-05-08 10:29 | ED.BACK ---
HPI - Back Pain/Injury General Chief Complaint: Back Pain/Injury Stated Complaint: L SIDE PAIN, PAINFUL TO TAKE DEEP BREATH Time Seen by Provider: 05/08/25 10:00 History of Present Illness HPI Narrative: For the last few days, patient has noticed some pain to her left flank/side, seems to be worse when she takes deep breaths. She is about 8 weeks , the pain is worse with certain movements. No chest pain, no trouble breathing at rest, no history of DVTs or PEs or swelling or pain in her legs. Related Data Allergies Allergy/AdvReac Type Severity Reaction Status Date / Time No Known Allergies Allergy Verified 05/08/25 09:48 Review of Systems Review of Systems: All systems reviewed & are unremarkable except as noted in HPI and below PMFSH Past Medical History Medical History Anemia Chlamydia Social History Social History Smoking status: Never smoker Alcohol intake: never Substance use: never Occupation/Education: occupation Exam Narrative: EXAMINATION OF ORGAN SYSTEMS/BODY AREAS: Constitutional: Vital signs per nursing GENERAL:No acute distress, non-toxic appearing. HEAD: Normal with no signs of head trauma. EYES: EOMI, conjunctiva normal ENT: Hearing grossly intact LUNGS: Nonlabored breathing. HEART: Regular rate and rhythm. Some slight reproducible tenderness to palpation to the left flank/ribs ABD: Soft, nontender to palpation EXT: Normal range of motion; no swelling or tenderness negative Homans SKIN: No rashes or lesions. NEURO: Alert. No gross focal sensory or strength deficits. PSYCH: Normal affect Course Vital Signs Vital signs: Vital Signs Temperature 97.7 F 05/08/25 09:50 Pulse Rate 96 05/08/25 09:50 Respiratory Rate 20 05/08/25 09:50 Blood Pressure 132/78 05/08/25 09:50 Pulse Oximetry 100 05/08/25 09:50 Oxygen Delivery Room Air 05/08/25 09:50 Temperature 97.7 F 05/08/25 09:50 Pulse Rate 96 05/08/25 09:50 Respiratory Rate 20 05/08/25 09:50 Blood Pressure 132/78 05/08/25 09:50 Pulse Oximetry 100 05/08/25 09:50 Oxygen Delivery Room Air 05/08/25 09:50 MDM MDM Narrative Medical decision making narrative: ED COURSE AND MEDICAL DECISION MAKIN-year-old female presenting with left side/rib pain with deep breath. EKG done in triage negative for acute ischemic changes. Cardiac workup is initiated. EKG: Performed in triage and interpreted by me. Normal sinus rhythm. Rate 84. Normal axis. [place] normal. QRS duration normal. QTc normal. No pathologic Q waves. No ST segment elevation or depression to suggest acute ischemia. No RV strain pattern. No risk factors and normal EKG making ACS unlikely. Negative PERC making PE unlikely. Presentation not consistent with dissection or aneurysm without radiation of pain or pulse deficits. CXR negative for mediastinal widening. No abdominal pain or signs of sepsis that would be concerning for esophageal perforation or mediastinitis. No cardiomegaly or JVD to suggest pericardial effusion/tamponade. Bedside ultrasound performed by myself, intrauterine visualized. Urinalysis negative for infection. On repeat evaluation just prior to discharge, the patient is no acute distress. I had a long discussion with the patient and with shared decision making, she is comfortable with outpatient management. She was given clear return instructions by myself in person as well as on discharge paperwork. Differential Diagnosis Differential Diagnosis: ACS, pneumothorax, anxiety, MSK, pneumonia, PE Lab Data Labs: Lab Results 05/08/25 Range/Units 11:22 Urine Color Yellow (Yellow) Urine Appearance Clear (Clear) Urine pH 5.5 (5.0-9.0) Ur Specific [place] 1.025 (1.001-1.035) Urine Protein Negative (Negative) mg/dL Urine Glucose (UA) Negative (Negative) mg/dL Urine Ketones 2+ H (Negative) mg/dL Ur Blood (Man) Negative (Negative) Urine Nitrate Negative (Negative) Urine Bilirubin Negative (Negative) Urine Urobilinogen 0.2 (<2.0) mg/dL Leukocyte Esterase Rfl Negative (Negative) RENE/UL Imaging Data Radiologist's impression: ITS Impressions Chest X-Ray 05/08/25 10:54 IMPRESSION: 1. No acute cardiopulmonary findings. Discharge Plan Discharge Clinical Impression: Rib pain on left side Patient Disposition: Home Condition: Stable Instructions: Flank Pain (ED) Additional Instructions: Your x-ray and EKG today was normal. You can continue with Tylenol as needed for pain and follow-up with your OBGYN; if you have any worsening pain, difficulty breathing, or anything else concerning, please return to the ER. Patient Language: Amharic Prescriptions: No Action norelgestromin-ethin.estradiol [Xulane] 150-35 mcg/24 hr patch weekly 1 patch transdermal WEEKLY Qty: 3 3RF Rx Instructions: apply once weekly for 3 weeks of a 4-week cycle Follow-up/Referrals: Reena De Dios APRN [Primary Care Provider, DES[employer]]
[2025-05-08 11:29] LABS: Add Urine Microscopic? NO; Appearance Urine Clear (Clear); Glucose Urine UA Negative (Negative); Leukocyte Esterase Ur Negative LEU/UL (Negative); Nitrate Urine Negative (Negative); Specific Grav Ur 1.025 (1.001-1.035)
[2025-05-08 11:47] VITALS: BP 128/82; PULSE 68; RESP 14; O2SAT 100
== END 2025-05-08 11:50 | disposition home or self-care (01) ==
PROVIDERS: Emergency Provider Emergency Medicine; PCP Nurse Practitioner Obstetrics & Gynecology
DX: O26.891 Other specified pregnancy related conditions, first trimester (principal); R07.89 Other chest pain; Z3A.08 8 weeks gestation of pregnancy; Z86.2 Personal history of diseases of the blood and blood-forming organs and certain disorders involving the immune mechanism; R94.31 Abnormal electrocardiogram [ECG] [EKG]
CPT/HCPCS: 71046; 81003; 93005; 99283